=== PATIENT | female | born 1965 | race Caucasian/White ===

== ENCOUNTER 2021-12-23 12:06 | Outpatient (CLI) | payer OTHER, SELFPAY ==
--- NOTE | ~2021-12-23 | CT_ITS ---
EXAMINATION: CT abdomen pelvis w con INDICATION: Left upper quadrant pain TECHNIQUE: Computed tomographic images of the abdomen and pelvis were obtained after the administrati on of 100 cc of Omnipaque 350 intravenous contrast. The dose-length product (DLP) was 253.77 mGy-cm. Automated exposure control and iterative reconstruction technique were employed. COMPARISON: None available FINDINGS: There is a 3 mm nodule in the left lower lobe. The heart size is normal. The liver, spleen, pancreas, gallbladder, and adrenal glands are normal. There is a 2 mm nonobstructing stone of the le ft kidney. There is a 3 mm nonobstructing stone of the right kidney. No stones are present in the ure ters or bladder. There is no hydronephrosis or hydroureter. There is a small amount of formed stool i n the nondistended terminal ileum, consistent with slow transit. No pathologically enlarged abdominal or pelvic lymph nodes are identified. There is no free intraperitoneal gas or evidence of bowel obst ruction. There is moderate lumbar spondylosis at L5-S1. IMPRESSION: 1. No CT correlate for the patient's symptoms. 2. Bilateral nonobstructing nephrolithiasis. 3. 3 mm nodule of the left lower lobe, likely old granulomatous disease. If the patient has no risk f actors for malignancy, no further follow up is required. If there are risk factors for malignancy (i .e., history of smoking, asbestos or radiation exposure), consider followup CT in 12 months. Reviewed, dictated and finalized at location [facility] IMPRESSION: 1. No CT correlate for the patient's symptoms. 2. Bilateral nonobstructing nephrolithiasis. 3. 3 mm nodule of the left lower lobe, likely old granulomatous disease. If the patient has no risk factors for malignancy, no further follow up is required. If there are risk factors for malignancy (i.e., history of smoking, asbestos o r radiation exposure), consider followup CT in 12 months.
== END 2021-12-23 12:07 | disposition home or self-care (01) ==
LOC: ANHIMG 12:18
PROVIDERS: Visit Provider Family Medicine
DX: R10.12 Left upper quadrant pain (principal); N20.0 Calculus of kidney; R91.1 Solitary pulmonary nodule
CPT/HCPCS: 74177; Q9967